=== PATIENT | male | born 1945 | race Caucasian/White ===

== ENCOUNTER 2018-01-19 20:23 | Inpatient (IN) | payer MEDICARE, OTHER ==
[~2018-01-19] VITALS: Ht 182.9 cm; Wt 84.1 kg
--- NOTE | 2018-01-19 21:03 | NUR ---
GALLO PEREIRA AT BEDSIDE FOR MSE.
[2018-01-19] MEDS ORDERED: GABA-534 PO (21:05)
[2018-01-19] MEDS ORDERED: APIX5TAB PO (21:05)
[2018-01-19] MEDS ORDERED: MULT1TAB73 PO (21:05)
[2018-01-19] MEDS ORDERED: AMIN30LI24 PO (21:05)
[2018-01-19] MEDS ORDERED: DONE10TA44 PO (21:05)
[2018-01-19] MEDS ORDERED: METO25TA6 PO (21:05)
[2018-01-19] MEDS ORDERED: FAMO-132 PO (21:05)
[2018-01-19] MEDS ORDERED: VANCOMYCIN IV 200 ML ONE (21:12)
[2018-01-19] MEDS ORDERED: VANCOMYCIN IV 1,000 MG in IV DEXTROSE 5% 250 ML IV ONE (21:15)
[2018-01-19] MEDS ORDERED: LIDO30AD10 TD (21:17)
--- NOTE | 2018-01-19 21:27 | NUR ---
XRAY AT PT BEDSIDE.
[2018-01-19 21:41] LABS: BASOPHILS # (AUTO) 0.1 K/uL (0.0-8.0); BASOPHILS % (AUTO) 0.8 % (0.0-2.0); EOSINOPHILS # (AUTO) 0.2 K/uL (0.0-0.7); EOSINOPHILS % (AUTO) 2.8 % (0.0-7.0); HEMATOCRIT 48.2 % (36.7-47.1); LYMPHOCYTES # (AUTO) 2.3 K/uL (20.0-40.0); LYMPHOCYTES % (AUTO) 27.5 % (20.5-51.5); MEAN CORPUSCULAR HEMOGLOBIN 30.1 uug (23.8-33.4); MEAN CORPUSCULAR HGB CONC 33 g/dL (32.5-36.3); MEAN CORPUSCULAR VOLUME 90.6 fL (73.0-96.2); MONOCYTES # (AUTO) 0.8 K/uL (2.0-10.0); MONOCYTES % (AUTO) 9.1 % (0.0-11.0); NEUTROPHILS # (AUTO) 5.1 K/uL (1.8-8.9); NEUTROPHILS % (AUTO) 59.8 % (38.5-71.5); PLATELET COUNT (AUTO) 237 K/uL (152-348); RED BLOOD CELL COUNT(AUTO) 5.32 MIL/uL (4.06-5.63); WHITE BLOOD COUNT (AUTO) 8.5 K/uL (3.6-10.2)
[2018-01-19 21:45] LABS: CARBON DIOXIDE 30 mmol/L (21-32); CHLORIDE 103 mmol/L (98-107); CREATININE 1.5 mg/dL (0.6-1.3); GLUCOSE 104 mg/dL (74-106); POTASSIUM 4.2 mmol/L (3.5-5.1); UREA NITROGEN, BLOOD 24 mg/dL (7-18)
[2018-01-19 21:57] LABS: ALANINE AMINOTRANSFERASE 32 U/L (16-63); ALKALINE PHOSPHATASE 113 U/L (50-136); ASPARTATE AMINOTRANSFERASE 22 U/L (15-37); BILIRUBIN,DIRECT 0.1 mg/dL (0.0-0.2); BILIRUBIN,TOTAL 0.5 mg/dL (0.2-1.0)
--- NOTE | 2018-01-19 22:41 | NUR ---
ATTEMPTED TO COLLECT URINE SAMPLE 2X W/ URINAL. PT REFUSES, AND SAYS HE IS UNABLE TO URINATE. NOTIFIED.
--- NOTE | 2018-01-19 23:11 | NUR ---
PT RESTING IN A POSITION OF COMFORT. VSS. NO ACUTE DISTRESS NOTED AT THIS TIME
--- NOTE | 2018-01-19 23:24 | NUR ---
GALLO PEREIRA SPEAKING W/ DR COELHO.
--- NOTE | 2018-01-19 23:45 | NUR ---
Pt. admitted to med surg, under care of Dr. Ryan Belongs List completed
[2018-01-19 23:52] VITALS: BP 114/57
--- NOTE | 2018-01-19 23:55 | NUR ---
PT WAS BROUGHT TO FLOOR VIA GURNEY, ADMITTED TO MED SURG UNDER DR. COELHO. INITIATED ADMISSION ASSESSMENTS, WILL CALL FOR ORDERS.
[2018-01-20 04:00] VITALS: BP 141/73
[2018-01-20 05:18] LABS: *BILIRUBIN,URIN NEGATIVE (NEGATIVE); *BLOOD, URINE NEGATIVE (NEGATIVE); *CLARITY,URINE SLIGHTLY CLOUDY (CLEAR); *COLOR,URINE YELLOW (YELLOW); *KETONES,URINE TRACE (NEGATIVE); *PROTEIN,URINE NEGATIVE (NEGATIVE); *UROBILINOGEN,URINE 0.2 E.U./dl (NORMAL); LEUKOCYTE ESTERASE ,URINE NEGATIVE (NEGATIVE); NITRITE, URINE NEGATIVE (NEGATIVE); PH,URINE 5.5 (5.0-8.0); UGLUCOSE NEGATIVE (NEGATIVE)
[2018-01-20 05:41] LABS: BACTERIA,URINE NONE SEEN /HPF (NONE SEEN); CALCIUM OXALATE CRYSTALS,UR MANY /HPF (NONE SEEN); MUCUS,URINE FEW /LPF (0-FEW); RBC,URINE NONE SEEN /HPF (0-3); SQUAMOUS EPITHELIAL CELL,UR FEW /HPF (NONE SEEN); WBC,URINE 0-3 /HPF (0-3)
--- NOTE | 2018-01-20 05:50 | NUR ---
NO C/O PAIN DURING SHIFT. IN NO ACUTE SIGNS OF DISTRESS. TURNED AND REPOSITIONED. SAFETY MEASURES MAINTAINED.
[2018-01-20 07:10] LABS: CARBON DIOXIDE 29 mmol/L (21-32); CHLORIDE 107 mmol/L (98-107); CREATININE 1.2 mg/dL (0.6-1.3); GLUCOSE 90 mg/dL (74-106); MAGNESIUM 1.8 mg/dL (1.8-2.4); PHOSPHOROUS 3.5 mg/dL (2.5-4.9); POTASSIUM 4.4 mmol/L (3.5-5.1); UREA NITROGEN, BLOOD 22 mg/dL (7-18)
[2018-01-20 07:19] LABS: BASOPHILS # (AUTO) 0.1 K/uL (0.0-8.0); BASOPHILS % (AUTO) 1.1 % (0.0-2.0); EOSINOPHILS # (AUTO) 0.1 K/uL (0.0-0.7); LYMPHOCYTES # (AUTO) 1.8 K/uL (20.0-40.0); LYMPHOCYTES % (AUTO) 25.6 % (20.5-51.5); MEAN CORPUSCULAR HEMOGLOBIN 30.3 uug (23.8-33.4); MEAN CORPUSCULAR HGB CONC 33 g/dL (32.5-36.3); MEAN CORPUSCULAR VOLUME 90.8 fL (73.0-96.2); MONOCYTES # (AUTO) 0.5 K/uL (2.0-10.0); MONOCYTES % (AUTO) 7.2 % (0.0-11.0); NEUTROPHILS # (AUTO) 4.6 K/uL (1.8-8.9); NEUTROPHILS % (AUTO) 64.1 % (38.5-71.5); PLATELET COUNT (AUTO) 210 K/uL (152-348); RED BLOOD CELL COUNT(AUTO) 5.62 MIL/uL (4.06-5.63); WHITE BLOOD COUNT (AUTO) 7.1 K/uL (3.6-10.2)
[2018-01-20] MEDS: MULTIVITAMINS,THERAPEUTIC TABLET PO SCH (08:37)
[2018-01-20] MEDS: METOPROLOL TARTRATE 25 MG TABLET PO SCH ×2 (08:38→17:32)
[2018-01-20] MEDS: GABAPENTIN 300 MG CAPSULE PO SCH (08:39)
[2018-01-20] MEDS: FAMOTIDINE 20 MG TABLET PO SCH ×2 (08:39→17:31)
[2018-01-20] MEDS: PROTEIN SUPPLEMENT (PROSTAT) 30 ML LIQUID PO SCH (08:44)
[2018-01-20] MEDS ORDERED: APIXABAN 5 MG TABLET PO ONE (09:30)
[2018-01-20] MEDS: LIDOCAINE 5% PATCH TD SCH (10:03)
[2018-01-20] MEDS: VANCOMYCIN IV 1,250 MG in IV DEXTROSE 5% 500 ML IV SCH (10:23)
--- NOTE | 2018-01-20 10:57 | NUR ---
Clinical Pharmacy Note: vancomycin Pharmacy to Dose Subjective: To start vanco in this 72 y/o gentleman for indication of cellulitis Objective: height 182 cm weight 84 kg BUN 22 Scr 1.2 Wbc 7.1 temp 97.5 1gm vanco given in ER 01/19 @9347 Assessment/Plan Will start regimen of 1250mg q16h for estimated trough of 16.7, first dose today at 1100. Will order trough before 4th scheduled dose (not ordered yet). Will check renal function in am and dose per level if to appear unstable. Will follow
[2018-01-20 11:05] VITALS: BP 136/79
[2018-01-20 15:05] VITALS: BP 105/58
[2018-01-20] MEDS: APIXABAN 5 MG TABLET PO SCH (17:31)
--- NOTE | 2018-01-20 18:15 | NUR ---
PT OBSERVED RESTING. PT SHOWS NO SIGN OF PAIN, DISCOMFORT, OR RESPIRATORY DISTRESS. PT BED AT THE LOWEST LOCKED POSITION. PT REPOSITIONED EVERY TWO HOURS OR NEEDED. CONTINUE TO MONITOR PT.
--- NOTE | 2018-01-20 19:30 | NUR ---
pt in room alert awake witth some confusion. Denies any pain or discomfort at this time. Right foot cellulitis remains red with no skin breakdown. Pt reminded to remain in bed and reoriented. Pt repositioned and bed alarm on. Bp noted 93/52. No s/s of resp distress. Continue to monitor.
[2018-01-20 20:32] VITALS: BP 93/52
[2018-01-20] MEDS: DONEPEZIL 10 MG TABLET PO SCH (20:38)
[2018-01-21] MEDS: VANCOMYCIN IV 1,250 MG in IV DEXTROSE 5% 500 ML IV SCH ×2 (02:45→18:02)
--- NOTE | 2018-01-21 06:00 | NUR ---
PT ALERT AWAKE IN NO ACUTE DISTRESS. NO REACTION TO RECENT IV VANCOMYCIN ABX THERAPY. ABLE TO USE URINAL SELF. NO INCREASED REDNESS NOTED TO CELLULITIS ON RIGHT FOOT. CONTINUE TO MONITOR. PT REPOSITIONED AND HOB MAINTAINED 30 DEGREES.
[2018-01-21 06:18] VITALS: BP 105/60
[2018-01-21] MEDS: PROTEIN SUPPLEMENT (PROSTAT) 30 ML LIQUID PO SCH (08:16)
[2018-01-21] MEDS: MULTIVITAMINS,THERAPEUTIC TABLET PO SCH (08:16)
[2018-01-21] MEDS: FAMOTIDINE 20 MG TABLET PO SCH ×2 (08:16→16:35)
[2018-01-21] MEDS: APIXABAN 5 MG TABLET PO SCH ×2 (08:16→16:35)
[2018-01-21] MEDS: GABAPENTIN 300 MG CAPSULE PO SCH (08:16)
[2018-01-21] MEDS: LIDOCAINE 5% PATCH TD SCH (08:17)
[2018-01-21] MEDS: METOPROLOL TARTRATE 25 MG TABLET PO SCH ×2 (08:17→16:35)
--- NOTE | 2018-01-21 10:49 | NUR ---
Clinical Pharmacy Note: vancomycin Pharmacy to Dose Subjective: To continue vanco in this 72 y/o gentleman for indication of cellulitis Objective: height 182 cm weight 84 kg BUN 22(3/2) Scr 1.2 (3/2) Wbc 7.1 (32) temp 98.6 1gm vanco given in ER 01/19 @4962 Assessment/Plan Will continue same regimen of vanco 1250mg IVPB q16h for today. 3rd dose is due today at 1900. Will order trough before 4th scheduled dose (not ordered yet). Will check renal function in am and dose per level if to appear unstable. Will follow Addendum: 01/21/18 at 1132 by ARIELLE JONES ORDERED VANCO TROUGH FOR 01/22 AT 1030AM
[2018-01-21 11:15] VITALS: BP 106/58
[2018-01-21 15:36] VITALS: BP 96/55
--- NOTE | 2018-01-21 18:32 | NUR ---
PT OBSERVED IN BED WATCH TV NO SIGNS OF RESPIRATORY DISTRESS. PT HAD A BM TODAY IN THE COMMODE WITH THE ASSISTANCE OF TWO NURSES. NEW IV STARTED 22 GAUGE ON LEFT FOREARM. CONTINUE TO MONITOR.
--- NOTE | 2018-01-21 19:27 | NUR ---
PT IN ROOM ALERT AWAKE CONFUSED IN NO ACUTE DISTRESS. UNABLE TO STATE NEEDS BUT ABLE TO FOLLOW SIMPLE COMMANDS. NO REACTION TO RECENT IV ABX VANCOMYCIN THERAPY. NO INCREASED REDNESS TO RIGHT FOOT. PT REMINDED TO USE DVT PUMPS WHILE IN BED. CONTINUE TO MONITOR. MAINTAINING IV HYDRATION. HOB ELEVATED 30 DEGREES.
[2018-01-21 20:00] VITALS: BP 112/59
[2018-01-21] MEDS: DONEPEZIL 10 MG TABLET PO SCH (20:35)
--- NOTE | 2018-01-22 01:00 | NUR ---
PT IN ROOM ALERT AWAKE IN NO ACUTE DISTRESS. PT REPOSITIONED AND REMINDED TO USE URINAL WHEN NEEDED. CONTINUE TO MONITOR.
[2018-01-22 04:00] VITALS: BP 108/66
--- NOTE | 2018-01-22 05:40 | NUR ---
PT ASLEEP IN ROOM IN NO ACUTE DISTRESS. NO C/O PAIN OR DISCOMFORT OVERNIGHT. NEEDS FREQUENT REORIENTATION AND REDIRECTION. ABLE TO FOLLOW PASSIVE ROM. NO INCREASED REDNESS NOTED TO RIGHT FOOT. NO S/S OF ANY BRUISING OR BLEEDING TO EXTREMITIES. PT REPOSITIONED WITH HOB MAINTAINED 30 DEGREES. ENCOURAGED FLUID INTAKE. BED ALARM ON AND 3 SIDE RAILS RAISED. CONTINUE TO MONITOR. URINAL AT BEDSIDE.
[2018-01-22] MEDS: FAMOTIDINE 20 MG TABLET PO SCH (08:30)
[2018-01-22] MEDS: APIXABAN 5 MG TABLET PO SCH (08:30)
[2018-01-22] MEDS: GABAPENTIN 300 MG CAPSULE PO SCH (08:31)
[2018-01-22] MEDS: LIDOCAINE 5% PATCH TD SCH (08:31)
[2018-01-22] MEDS: METOPROLOL TARTRATE 25 MG TABLET PO SCH (08:31)
[2018-01-22] MEDS: MULTIVITAMINS,THERAPEUTIC TABLET PO SCH (08:31)
[2018-01-22] MEDS: PROTEIN SUPPLEMENT (PROSTAT) 30 ML LIQUID PO SCH (08:32)
[2018-01-22 11:26] VITALS: BP 109/67
--- NOTE | 2018-01-22 12:19 | NUR ---
Clinical Pharmacy Note: vancomycin Pharmacy to Dose Subjective: To continue vanco in this 72 y/o gentleman for indication of cellulitis Objective: height 182 cm weight 84 kg BUN 22(3/2) Scr 1.2 (3/2) Wbc 7.1 (3/2) temp 98.4 Trough: 10.8 today at 1030 Assessment/Plan Based on trough, readjusted regimen to 1250mg q12hr for new estimated trough of 17.1, first dose today at 1300. Will order trough before 4th scheduled dose (not ordered yet). Will adjust if renal function were to change as well. Will follow
[2018-01-22] MEDS ORDERED: VANCOMYCIN IV 1,250 MG in IV DEXTROSE 5% 500 ML IV SCH (13:00)
[2018-01-22] MEDS ORDERED: RXVAN XX (13:33)
[2018-01-22] MEDS ORDERED: VANC1.2511 IV (13:33)
--- NOTE | 2018-01-22 16:00 | NUR ---
Daily nursing note: 0730 Patient was received this morning, on O2 at 2lpm, respirations even and non-labored, not in acute distress and not in any pain at this time, currently asleep, comfortable. 1040 Vancomycin trough done. Awaiting for results and pharmacy to dose. 1100 Huma GHOSH, came by, and was attended to all the concerns and needs pertaining to patient information, updated with patients overall condition, encouraged to ask questions, none at this time. 1300 Vancomycin trough results received, and Vancomycin antibiotic therapy via IV on the left forearm ongoing, site is intact and flushing well, no infiltration noted, patient has no noted adverse reactions to the medication at this time. Kept comfortable, handled gently. 1330 Received new orders for discharged, Huma was notified promptly, appreciated the call. 1400 Pertinent assessments done, skin is intact and dry, no skin issues noted at this time, not in distress, vitals signs taken and recorded. 1515 Called [facility], were patient used to reside and notified of transfer,discharged instructions given, all pertinent questions regarding patient, were answered. Rachel MEJÍA, gave her nursing report, she verbalized understanding. 1545 Patient was picked up by [facility] transport, discharged instructions given, verbal nursing report given, transferred via gurney, on O2 at 2LPM via NC, not in distress, not in pain.
== END 2018-01-22 16:20 | DRG 602 ==
LOC: ER 20:23 → MED 23:32
PROVIDERS: ADMIT Internal Medicine; ATTEND Internal Medicine
DX: L03.115 Cellulitis of right lower limb (principal); N17.0 Acute kidney failure with tubular necrosis; I69.351 Hemiplegia and hemiparesis following cerebral infarction affecting right dominant side; J98.11 Atelectasis; I69.320 Aphasia following cerebral infarction; Z79.01 Long term (current) use of anticoagulants; K21.9 Gastro-esophageal reflux disease without esophagitis; M25.551 Pain in right hip; Z79.899 Other long term (current) drug therapy; M85.80 Other specified disorders of bone density and structure, unspecified site; I10 Essential (primary) hypertension
CPT/HCPCS: 36415; 71045; 73630; 83735; 84100; 85025; 93005; A4663; J3370; J3490; J7060